=== PATIENT | male | born 1945 | race Hispanic/Latino ===

== ENCOUNTER 2022-07-14 10:34 | Emergency (ER) | payer OTHER, MEDICARE ==
[2022-07-14] MEDS ORDERED: CEFAZOLIN 1 GM VIAL ONE (11:24)
[2022-07-14] MEDS ORDERED: Sodium Chloride 0.9% 100 ML ONE (11:24)
[2022-07-14] MEDS ORDERED: Morphine 4 MG/ML VIAL ONE ×2 (11:29→12:37)
[2022-07-14 11:50] LABS: #Basophils 0.1 thou/uL (0.0-0.2); #Eosinphils 0.2 thou/uL (0.0-0.7); #Lymphocytes 2.2 thou/uL (1.20-3.40); #Monocytes 0.5 thou/uL (0.11-0.59); #Neutrophils 4.2 thou/uL (1.40-6.50); %Basophils 0.8 % (0.0-1.0); %Eosinophils 2.7 % (0.0-10.0); %Lymphocytes 31.3 % (21.0-51.0); %Monocytes 6.3 % (0.0-10.0); %Neutrophils 58.8 % (42.0-75.0); Hemoglobin 14.5 g/dL (14.0-18.0); Mean Corpuscular HGB CONC 33.2 g/dL (32.0-36.0); Mean Corpuscular Hemoglobin 29.5 pg (27.0-31.0); Mean Corpuscular Volume 88.7 fl (78.0-98.0); Mean Platelet Volume 9.5 fL (7.4-10.4); Platelet Count 139 10x3/uL (130-400); RBC Distribution Width 12.2 % (11.5-14.5); Red Blood Cell (RBC) Count 4.93 mill/uL (4.70-6.10); White Blood Cell (WBC) Count 7.1 10x3/uL (4.8-10.8)
[2022-07-14 11:52] LABS: INR-International Normal Ratio 1.1; Prothrombin Time 14.9 sec (12.0-14.7)
[2022-07-14 11:54] LABS: PTT 33.9 sec (22.9-36.1)
[2022-07-14 12:01] LABS: Anion Gap 11 mmol/L (10-20); BUN (Urea Nitrogen) 19 mg/dL (8.4-25.7); Calc. Creatinine Clearance 0 mL/min (70-130); Calcium 8.9 mg/dL (7.8-10.44); Carbon Dioxide 23 mmol/L (23-31); Chloride 109 mmol/L (98-107); Estimated GFR 92; Glucose 109 mg/dL (83-110); Potassium 3.8 mmol/L (3.5-5.1); Sodium 139 mmol/L (136-145)
[2022-07-14 12:34] LABS: SARS-CoV-2 NAA Rapid Test Not Detected (NotDetected)
== END 2022-07-14 12:57 | disposition short-term general hospital (02) ==
LOC: MADERS 10:34
DX: S62.522B Displaced fracture of distal phalanx of left thumb, initial encounter for open fracture (principal); S62.631B Displaced fracture of distal phalanx of left index finger, initial encounter for open fracture; S62.633B Displaced fracture of distal phalanx of left middle finger, initial encounter for open fracture; I10 Essential (primary) hypertension; E78.5 Hyperlipidemia, unspecified; W27.0XXA Contact with workbench tool, initial encounter; Z20.822 Contact with and (suspected) exposure to COVID-19
CPT/HCPCS: 36415; 80048; 85025; 85610; 85730; 96365; 96372; 96375; J0690; J2270; J3490; U0002